=== PATIENT | male | born 1975 | race Caucasian/White ===

== ENCOUNTER 2017-08-13 21:39 | Emergency (ER) | payer SELFPAY ==
[~2017-08-13] VITALS: Ht 175.3 cm; Wt 85.3 kg
[2017-08-13 21:42] VITALS: Ht 175.3 cm; Wt 85.3 kg
[2017-08-13 22:37] LABS: BASOPHIL % 0.4 % (0-2); PLATELET COUNT 239 x10^3mcL (130-400); RED CELL DISTRIBUTION WIDTH 13.2 % (11.5-14.5)
[2017-08-13 22:47] LABS: CALCIUM 8.7 mg/dL (8.5-10.1); CARBON DIOXIDE 26.9 mmol/L (21-32); CHLORIDE SERUM 101 mmol/L (98-107); CREATININE SERUM 0.9 mg/dL (0.7-1.3); GFR1 > 60 mL/min; GLUCOSE SERUM 130 mg/dL (74-106); POTASSIUM SERUM 3.5 mmol/L (3.5-5.1); SODIUM SERUM 138 mmol/L (136-145)
[2017-08-13 23:03] LABS: FREE T4 0.83 ng/dL (0.76-1.46)
[2017-08-13 23:52] VITALS: BP 145/96
== END 2017-08-13 23:41 | disposition home or self-care (01) ==
LOC: ED 21:39
PROVIDERS: Emergency Medicine
DX: R53.83 Other fatigue (principal); J04.0 Acute laryngitis; R07.89 Other chest pain; J00 Acute nasopharyngitis [common cold]
CPT/HCPCS: 36415; 84439; J7030; Q0092